=== PATIENT | female | born 2000 | race Caucasian/White ===

== ENCOUNTER 2022-12-10 19:00 | Inpatient (IN) | payer OTHER ==
[~2022-12-10 19:00] MED LIST: Bupivacaine 0.25% HCL 30 ML VIAL ONE; Bupivacaine HCl 0.5%/Epinephrine 1:200,000/PF 30 ml Vial ONE
[2022-12-10] MEDS ORDERED: Carboprost 250 MCG/ML AMP IM PRN (20:30)
[2022-12-10] MEDS ORDERED: Lidocaine 1% (PF) 30 ML VIAL SC PRN (20:30)
[2022-12-10] MEDS ORDERED: Butorphanol Tartrate 1 MG/ML VIAL SLOW IVP PRN (20:30)
[2022-12-10] MEDS ORDERED: hydrALAZINE 20 MG/ML VIAL SLOW IVP PRN (20:30)
[2022-12-10] MEDS ORDERED: Misoprostol 200 MCG TAB PR PRN (20:30)
[2022-12-10] MEDS ORDERED: Ibuprofen 800 MG TAB PO PRN (20:30)
[2022-12-10] MEDS ORDERED: Ondansetron PF 4 MG/2 ML Vial IVP PRN (20:30)
[2022-12-10] MEDS ORDERED: Methylergonovine 0.2 MG/ML VIAL IM PRN (20:30)
[2022-12-10] MEDS ORDERED: Promethazine HCl 25 MG/ML VIAL IM PRN (20:30)
[2022-12-10] MEDS ORDERED: NS w/ Oxytocin 30 units 500 ML IV SCH ×2 (20:30)
[2022-12-10 20:46] LABS: Hemoglobin 12.3 g/dL (12.0-15.5); Mean Corpuscular HGB CONC 34.6 g/dL (32.0-36.0); Mean Corpuscular Hemoglobin 31.9 pg (27.0-33.0); Mean Platelet Volume 10.8 fl (7.4-10.4); Platelet Count 206 10x3/uL (150-450); RBC Distribution Width 13.9 % (11.5-14.5); Red Blood Cell (RBC) Count 3.86 10x6/uL (3.90-5.03); White Blood Cell (WBC) Count 15.1 10x3/uL (3.5-10.5)
[2022-12-10] MEDS: Misoprostol 100 MCG TAB VAG SCH (21:08)
[2022-12-10 21:14] LABS: Syphilis Antibody Nonreactive (Nonreactive); Syphilis Antibody Index 0.04 S/CO (<1.00 Non-Reactive)
[2022-12-10 21:16] LABS: HBSAg Index 0.15 S/CO (0-0.99); Hep B Surf Ag Non-Reactive S/CO (NonReactive)
[2022-12-10 21:32] VITALS: BMI 40.7
[2022-12-10 21:50] LABS: SARS-CoV-2 NAA Rapid Test Not Detected (NotDetected)
[2022-12-11] MEDS ORDERED: Promethazine HCl 25 MG/ML VIAL IM PRN ×2 (03:57→12:20)
[2022-12-11] MEDS ORDERED: Acetaminophen 325 MG TAB PO PRN ×2 (03:57→12:20)
[2022-12-11] MEDS ORDERED: diphenhydrAMINE 50 MG/ML VIAL IVP PRN (03:57)
[2022-12-11] MEDS ORDERED: ePHEDrine Sulfate 50 MG/10 ML VIAL SLOW IVP PRN ×2 (03:57→12:20)
[2022-12-11] MEDS ORDERED: Lactated Ringer's 500 ML IV PRN ×2 (03:57→12:30)
[2022-12-11] MEDS ORDERED: Ondansetron PF 4 MG/2 ML Vial IVP PRN ×2 (03:57→12:20)
[2022-12-11] MEDS ORDERED: Naloxone HCl 0.4 mg/ml Vial IVP PRN ×4 (03:57→12:20)
[2022-12-11] MEDS ORDERED: Moisturizing Cream (Eucerin) 113 GM JAR TOP PRN ×2 (03:57→12:20)
[2022-12-11] MEDS ORDERED: Communication Order-Pharmacy FS SCH ×2 (04:00→12:30)
[2022-12-11] MEDS ORDERED: Butorphanol Tartrate 1 MG/ML VIAL SLOW IVP PRN (07:19)
[2022-12-11] MEDS: Lactated Ringer's 1,000 ML IV SCH ×3 (07:27→21:51)
[2022-12-11] MEDS: Misoprostol 100 MCG TAB VAG SCH ×6 (07:32→21:51)
[2022-12-11 10:06] LABS: #Monocytes 0.7 10x3/uL (0.0-1.1); #Neutrophils 11.8 10x3/uL (1.5-8.4); %Basophils 0.3 % (0.0-2.0); %Eosinophils 0.2 % (0.0-6.0); %Lymphocytes 11.7 % (18.0-47.0); %Monocytes 4.9 % (0.0-10.0); %Neutrophils 82.3 % (40.0-75.0); Hemoglobin 12.4 g/dL (12.0-15.5); Mean Corpuscular HGB CONC 33.9 g/dL (32.0-36.0); Mean Corpuscular Hemoglobin 31.5 pg (27.0-33.0); Mean Corpuscular Volume 92.9 fl (81.6-98.3); Mean Platelet Volume 10.3 fl (7.4-10.4); Platelet Count 197 10x3/uL (150-450); Red Blood Cell (RBC) Count 3.94 10x6/uL (3.90-5.03); White Blood Cell (WBC) Count 14.4 10x3/uL (3.5-10.5)
[2022-12-11 10:08] LABS: ALT (SGPT) 11 U/L (8-55); AST (SGOT) 12 U/L (5-34); Albumin 3.5 g/dL (3.5-5.0); Alkaline Phosphatase 165 U/L (40-110); Anion Gap 14 mmol/L (10-20); BUN (Urea Nitrogen) 8 mg/dL (7.0-18.7); Bilirubin, Total 0.4 mg/dL (0.2-1.2); Calc. Creatinine Clearance 180 mL/min (70-130); Calcium 9.5 mg/dL (7.8-10.44); Carbon Dioxide 22 mmol/L (22-29); Chloride 108 mmol/L (98-107); Estimated GFR 106; Globulin 3.2 g/dL (2.4-3.5); Glucose 78 mg/dL (70-105); Potassium 4.6 mmol/L (3.5-5.1); Protein, Total 6.7 g/dL (6.0-8.3); Sodium 139 mmol/L (136-145)
[2022-12-11] MEDS ORDERED: Fentanyl 2 mcg/Bup 0.1% Cadd 100 ML ONE (12:42)
[2022-12-11] MEDS: Fentanyl 2 mcg/Bupivacaine 0.1% Cassette 100 ML EPIDURAL SCH ×2 (14:42→18:43)
[2022-12-11 19:24] LABS: Creatinine, Urine 62.08 mg/dL (47-110); Protein, Urine Random Quant Less than 10 mg/dL (1-14)
[2022-12-11] MEDS: diphenhydrAMINE 50 MG/ML VIAL IVP PRN (21:55)
[2022-12-12] MEDS: Fentanyl 2 mcg/Bupivacaine 0.1% Cassette 100 ML EPIDURAL SCH ×2 (00:29→08:16)
[2022-12-12] MEDS: diphenhydrAMINE 50 MG/ML VIAL IVP PRN ×3 (00:58→08:46)
[2022-12-12] MEDS: Misoprostol 100 MCG TAB VAG SCH ×3 (01:12→13:50)
[2022-12-12] MEDS: Lactated Ringer's 1,000 ML IV SCH ×2 (05:36→13:50)
[2022-12-12] MEDS ORDERED: Fentanyl 2 mcg/Bup 0.1% Cadd 100 ML ONE ×2 (08:13→13:45)
[2022-12-12] MEDS ORDERED: Misoprostol 200 MCG TAB ONE (17:16)
[2022-12-12] MEDS ORDERED: Lidocaine 1% (PF) 30 ML VIAL ONE (17:16)
[2022-12-12] MEDS ORDERED: Methylergonovine 0.2 MG/ML VIAL IM PRN (20:27)
[2022-12-12] MEDS ORDERED: Ondansetron PF 4 MG/2 ML Vial IVP PRN (20:27)
[2022-12-12] MEDS ORDERED: hydrALAZINE 20 MG/ML VIAL SLOW IVP PRN (20:27)
[2022-12-12] MEDS ORDERED: Boostrix 0.5 ML (Tdap) VIAL (>/=7 yrs of age) IM ONE (20:27)
[2022-12-12] MEDS ORDERED: Misoprostol 200 MCG TAB VAG PRN (20:27)
[2022-12-12] MEDS ORDERED: NS w/ Oxytocin 30 units 500 ML IV SCH (20:27)
[2022-12-12] MEDS ORDERED: Preparation H Ointment 28 GM TUBE PR PRN (20:27)
[2022-12-12] MEDS ORDERED: Bisacodyl 10 MG SUPP PR PRN (20:27)
[2022-12-12] MEDS ORDERED: diphenhydrAMINE 25 MG CAP PO PRN (20:27)
[2022-12-12] MEDS ORDERED: Promethazine HCl 25 MG/ML VIAL IM PRN (20:27)
[2022-12-12] MEDS ORDERED: Milk Of Magnesia 30 ML UDCUP PO PRN (20:27)
[2022-12-12] MEDS: Ibuprofen 800 MG TAB PO SCH (21:38)
[2022-12-12] MEDS: Docusate 100 MG CAP PO SCH (21:38)
[2022-12-13] MEDS: Ibuprofen 800 MG TAB PO SCH ×2 (05:43→13:24)
[2022-12-13] MEDS: Ferrous Sulfate 325 MG TAB PO SCH ×2 (07:03→07:04)
[2022-12-13] MEDS: Misoprostol 100 MCG TAB VAG SCH (07:04)
[2022-12-13] MEDS: Docusate 100 MG CAP PO SCH (08:29)
[2022-12-13] MEDS ORDERED: Prenatal Vitamin 1 TAB PO SCH (09:00)
[2022-12-13] MEDS ORDERED: Acetaminophen 500 MG TAB PO PRN (16:44)
[2022-12-13] MEDS ORDERED: Simethicone Chewable 80 MG TAB PO SCH (17:00)
[2022-12-13 20:11] VITALS: BP 129/80; TEMP 97.6
== END 2022-12-13 20:35 | disposition home or self-care (01) | DRG 806 ==
LOC: CSHLD 19:06 → CSHPP 12-12 20:35
PROVIDERS: ADMIT Student in an Organized Health Care Education/Training Program; ATTEND Student in an Organized Health Care Education/Training Program
PROC: 3E0P7VZ Introduction of Hormone into Female Reproductive, Via Natural or Artificial Opening (ICD-10-PCS; 2022-12-10)
PROC: 3E033VJ Introduction of Other Hormone into Peripheral Vein, Percutaneous Approach (ICD-10-PCS; 2022-12-11)
PROC: 10D07Z6 Extraction of Products of Conception, Vacuum, Via Natural or Artificial Opening (ICD-10-PCS; principal; 2022-12-12)
PROC: 0HQ9XZZ Repair Perineum Skin, External Approach (ICD-10-PCS; 2022-12-12)
PROC: 10H07YZ Insertion of Other Device into Products of Conception, Via Natural or Artificial Opening (ICD-10-PCS; 2022-12-12)
DX: O99.344 Other mental disorders complicating childbirth (principal); O98.52 Other viral diseases complicating childbirth; Z37.0 Single live birth; Q21.10 Atrial septal defect, unspecified; O70.0 First degree perineal laceration during delivery; B00.9 Herpesviral infection, unspecified; F17.210 Nicotine dependence, cigarettes, uncomplicated; O99.334 Smoking (tobacco) complicating childbirth; F32.9 Major depressive disorder, single episode, unspecified; F90.9 Attention-deficit hyperactivity disorder, unspecified type; O76 Abnormality in fetal heart rate and rhythm complicating labor and delivery; O32.8XX0 Maternal care for other malpresentation of fetus, not applicable or unspecified; Z79.899 Other long term (current) drug therapy; Z79.82 Long term (current) use of aspirin; Z3A.39 39 weeks gestation of pregnancy; Z98.890 Other specified postprocedural states; Z90.89 Acquired absence of other organs; Z20.822 Contact with and (suspected) exposure to COVID-19
CPT/HCPCS: 36415; 51702; 80053; 82570; 84156; 85025; 85027; 86780; 86850; 86900; 86901; 87340; J0595; J1200; J2405; J2590; J7120; S0020; U0002